=== PATIENT | male | born 1965 | race Caucasian/White ===

== ENCOUNTER 2019-05-06 23:30 | Inpatient (IN) | payer OTHER ==
[~2019-05-06] VITALS: Ht 177.8 cm; Wt 64.0 kg
[~2019-05-06 23:30] MED LIST: OMEP40CA38 ORAL; SULF1TAB31 PO
[2019-05-06] MEDS ORDERED: LORAZEPAM 2 MG INJ IV STA (23:41)
[2019-05-07] MEDS ORDERED: DEXTROSE 50% 50 ML SYRINGE ONE (00:46)
[2019-05-07] MEDS ORDERED: DEXTROSE 50% 50 ML SYRINGE IV STA (01:55)
[2019-05-07] MEDS ORDERED: SOD CHLORIDE 0.9% 1,000 ML IV SCH (02:11)
[2019-05-07] MEDS ORDERED: GLUCOSE GEL 15 GRAM TUBE PO PRN ×2 (02:30)
[2019-05-07] MEDS ORDERED: NACL 0.9% 3 ML SYG IV SCH (02:30)
[2019-05-07] MEDS ORDERED: DEXTROSE 50% 50 ML SYRINGE IV PRN ×2 (02:30)
[2019-05-07] MEDS ORDERED: ONDANSETRON 4 MG INJ IV PRN (02:30)
[2019-05-07] MEDS ORDERED: DOCUSATE SODIUM 100 MG CAP PO PRN (02:30)
[2019-05-07] MEDS ORDERED: GLUCOSE GEL 15 GRAM TUBE BUCCAL PRN (02:30)
[2019-05-07] MEDS ORDERED: GLUCAGON 1 MG INJ IM PRN (02:30)
[2019-05-07] MEDS ORDERED: BISACODYL (EC) 5 MG TAB PO PRN (02:30)
[2019-05-07] MEDS ORDERED: ACETAMINOPHEN 325 MG TAB PO PRN (02:30)
[2019-05-07] MEDS ORDERED: CEFTRIAXONE 2 GM/50 ML (PMX) 50 ML IVPB ONE (03:30)
[2019-05-07] MEDS ORDERED: DEXTROSE 5%-0.45% NACL 1,000 ML IV SCH (04:00)
[2019-05-07] MEDS: INSULIN ASPART [NOVOLOG] 3 ML PEN SC SCH ×5 (05:00→21:00)
[2019-05-07] MEDS ORDERED: THIAMINE 200 MG INJ IV SCH (14:00)
[2019-05-07] MEDS: THIAMINE 500 MG in SOD CHLORIDE 0.9% 100 ML IVPB SCH ×2 (15:42→21:48)
[2019-05-07 16:42] VITALS: BP 175/86; PULSE 70; RESP 17
[2019-05-07 17:17] VITALS: Ht 177.8 cm; Wt 64.0 kg
[2019-05-07 20:22] VITALS: BP 163/74; PULSE 69; RESP 18
[2019-05-07] MEDS ORDERED: hydrALAzine 20 MG INJ IV PRN (21:30)
[2019-05-08 00:30] VITALS: BP 151/80; PULSE 68; RESP 16
[2019-05-08] MEDS: INSULIN ASPART [NOVOLOG] 3 ML PEN SC SCH ×6 (01:00→21:19)
[2019-05-08] MEDS: ACCU-CHEK XX SCH (02:00)
[2019-05-08 04:43] VITALS: BP 133/65; PULSE 67; RESP 20
[2019-05-08] MEDS: THIAMINE 500 MG in SOD CHLORIDE 0.9% 100 ML IVPB SCH ×3 (06:24→21:00)
[2019-05-08 07:30] VITALS: BP 141/67; PULSE 68; RESP 18
[2019-05-08 12:18] VITALS: BP 134/78; PULSE 98; RESP 18
[2019-05-08 16:37] VITALS: BP 151/77; RESP 16
[2019-05-08 20:02] VITALS: BP 114/56; PULSE 73; RESP 18
[2019-05-09 00:12] VITALS: BP 135/77; PULSE 63; RESP 18
[2019-05-09] MEDS: ACCU-CHEK XX SCH (02:04)
[2019-05-09 04:00] VITALS: BP 122/66; PULSE 62; RESP 18
[2019-05-09] MEDS: THIAMINE 500 MG in SOD CHLORIDE 0.9% 100 ML IVPB SCH (06:07)
[2019-05-09 07:32] VITALS: BP 128/87; PULSE 66; RESP 18
[2019-05-09] MEDS: INSULIN ASPART [NOVOLOG] 3 ML PEN SC SCH ×2 (07:55→11:50)
[2019-05-09 11:09] VITALS: BP 119/72; PULSE 88; RESP 20
== END 2019-05-09 13:49 | disposition left against medical advice (07) | DRG 644 ==
LOC: EDBD 23:30 → E/R 23:30 → TEL 05-07 02:13 → SUATTDRO 05-07 08:44 → OBSVTOIN 05-08 15:45
PROVIDERS: ADMIT Family Medicine; ATTEND Family Medicine
DX: E16.1 Other hypoglycemia (principal); G93.40 Encephalopathy, unspecified; D64.9 Anemia, unspecified; F15.129 Other stimulant abuse with intoxication, unspecified; F10.10 Alcohol abuse, uncomplicated; Y90.0 Blood alcohol level of less than 20 mg/100 ml
CPT/HCPCS: 36415; 70450; 71045; 80048; 80053; 80307; 81001; 82728; 82962; 83036; 83540; 83605; 83735; 84443; 84484; 85025; 93005; 96374; 96375; 97162; G0378; J0360; J0696; J1815; J2060; J3411; J7030; J7042